=== PATIENT | female | born 1965 | race Caucasian/White ===

== ENCOUNTER 2020-03-21 06:20 | Day surgery (SDC) | payer OTHER ==
[~2020-03-21] VITALS: Ht 170.2 cm; Wt 111.1 kg
[~2020-03-21 06:20] MED LIST: ACETAMINOPHEN325 M1 PO; ASPIRIN EC81 MG PO; CALCIUM + VITA1 EACH PO; CHLORPHENIRAMINE4 MG PO; CLIMARA1 EAC1 TD; CLOBETASOL EMOL15 GM TOP; IBUPROFEN200 MG PO; LEVOTHYROXINE112 MCG PO; LIOTHYRONINE SO5 MCG PO; LIPITOR40 MG PO; METOPROLOL SUCC25 MG PO; PEPCID20 MG PO; PROMETRIUM200 MG PO; TUMS ULTRA400 MG PO; VISION VITAMIN1 EACH PO; WELLBUTRIN XL300 MG PO; ZOLOFT50 MG PO
--- NOTE | 2020-03-21 08:19 | NUR ---
03/21/20 0819 Elissa Yip 0816-PATIENT ARRIVED TO PACU ON 2L NC AWAKE DROWSY LAYING LEFT LATERAL. ABDOMEN SOFT. IVF INFUSING. RR EVEN. ENCOURAGED TO PASS GAS. PATIENT FOLLOWS COMMANDS REPOSITIONS SELF IN BED. DOZES BACK TO SLEEP.
--- NOTE | 2020-03-21 08:20 | NUR ---
PT IS ALERT, ORIENTED AND APPEARS TO BE DIDIGENT IN HER HEALTH CARE. PT HAS A HISTOSRY OF COLON CANCER IN HER FAMILY AND IS HAVING ADDITIONAL DISCOMFORT SO AN EGD WAS ALSO ORDERED. PT'S [facility] ASKED AND ANSWERED. OR STAFF INTO TAKE PT. GAVE BLESSING
--- NOTE | 2020-03-21 10:45 | OR ---
[facility] [address], [place] [address] Signed DATE OF OPERATION: 03/21/2020 SURGEON: Ryan Luther MD PREOPERATIVE DIAGNOSES: 1. Possible celiac sprue. 2. Chronic diarrhea. 3. Daughter with rectal cancer, age 25. 4. Father with colonic polyps. POSTOPERATIVE DIAGNOSES: 1. Mild gastroduodenitis. 2. Tiny hiatal hernia. 3. A 10 mm polyp at 20 cm (snare). 4. A 7 mm polyp at 15 cm (distal sigmoid colon). 5. A 4 mm polyp at 10 cm (rectum). PROCEDURES: 1. EGD with CLOtest and biopsies of the duodenum x3, pyloric bulb, antrum and GE junction. 2. Colonoscopy, snare polypectomy and hot biopsy. ESTIMATED BLOOD LOSS: None. INDICATIONS: Evans is a 55-year-old female, asked to see me for upper and lower endoscopy. I initially met Evans when her daughter was diagnosed with rectal cancer at age 25. She had a negative colonoscopy in 2008 and then again in 2014. She told me she has had diarrhea probably for 15 years. She has had abdominal pain. She was tested for celiac sprue and some of the tests came back positive, but others did not. She has switched over a gluten free diet and she thinks overall she is better. In the meantime, she was asked to see me for both upper and lower endoscopy. I explained to Evans if she is very strict with a gluten free diet that the duodenum will recover and the biopsies will actually come back fine. In the office, I gave her pamphlets on both upper and lower endoscopy. We reviewed those together along with the risks including, but not limited to gas bloating, crampy abdominal pain, bleeding, perforation requiring surgery, and missed diagnosis. She has done well with Versed and fentanyl in the past. She has expressed understanding and wished to proceed. Electronically Signed By: RYAN LUTHER MD 03/21/20 1045 PATIENT NAME: EVANS KATZ OPERATIVE REPORT DATE OF : 67 REPORT #: [id number] PHYSICIAN: RYAN LUTHER MD PCP: NIYAH BISWAS REPORT IS CONFIDENTIAL AND NOT TO BE RELEASED WITHOUT AUTHORIZATION [facility] [address] [place] [id number] Signed DESCRIPTION OF PROCEDURE: Evans was taken into our endoscopy suite and placed in the supine semi-recumbent position. The posterior oropharynx was anesthetized with lidocaine spray. A bite block was utilized for the case. She was given a total of 7 mg of Versed and 150 mcg of fentanyl to cover the case. The adult gastroscope was introduced and advanced out into the third portion of the duodenum without difficulty. The duodenum appeared quite healthy. Three biopsies were taken as far out in the duodenum as we could reach. The pyloric bulb in the stomach showed very mild erythematous changes throughout. We went ahead and took biopsies of the pyloric bulb and the antrum for pathologic review. In addition, biopsy came out of the antrum for CLOtest. Upon retroflexion of scope, she may have just a very tiny hiatal hernia. The scope had been withdrawn up through the area of GE junction, which was compliant without stricture. There were no gastric or esophageal varices. She had very minimal disruption to her Z-line. There was no Wilkerson's mucosa. We went ahead and took a biopsy along the edge of the Z-line for pathologic review. The distal middle and upper esophagus were unremarkable. After this, the gas had been suctioned out and the gastroscope removed. Evans tolerated procedure quite well. Evans was rotated into the left lateral decubitus position. She was maintained on IV sedation with Versed and fentanyl. A digital rectal exam was performed and this was unremarkable. The adult colonoscope was introduced and advanced around into the cecum under direct visualization of camera. It took extra sedation and abdominal compression in order to advance the scope. Her prep was quite excellent. We could easily see the appendiceal orifice and the ileocecal valve. We had taken pictures throughout for photodocumentation. The scope was slowly withdrawn. We saw no inflammatory changes throughout the entire colon. We removed the polyp at 20 cm with help of the snare. The other two were taken out with the help of hot biopsy forceps. Upon retroflexion of scope, there was no additional pathology noted above the anal canal. After this, the gas was suctioned out and colonoscope removed. Evans tolerated her lower endoscopy quite well. RECOMMENDATIONS: I will see Evans back in my office in 7 to 14 days to review her results. Ryan Luther MD ALB/MODL /[id number] Electronically Signed By: RYAN LUTHER MD 03/21/20 1045 PATIENT NAME: EVANS KATZ OPERATIVE REPORT DATE OF : 67 REPORT #: [id number] PHYSICIAN: RYAN LUTHER MD PCP: NIYAH BISWAS PAC REPORT IS CONFIDENTIAL AND NOT TO BE RELEASED WITHOUT AUTHORIZATION [facility] [address] [place] [address] Signed cc: LEONIDES Garcia MD Jeffrey M Lehr, MD Ryan Luther MD Copies: AARTI HERNANDEZ MD,RYAN JACKSON MD, MD ~ Electronically Signed By: RYAN LUTHER MD 03/21/20 1045 PATIENT NAME: EVANS KATZ OPERATIVE REPORT DATE OF : 67 REPORT #: [id number] PHYSICIAN: RYAN LUTHER MD PCP: NIYAH BISWAS PAC REPORT IS CONFIDENTIAL AND NOT TO BE RELEASED WITHOUT AUTHORIZATION
--- NOTE | 2020-03-22 12:10 | PATH ---
[facility] [facility] [address], [place] [address] Signed SPECIMEN(S): A DUODENUM SPECIMEN(S): B PYLORUS, BULB SPECIMEN(S): C ANTRUM SPECIMEN(S): D GE JUNCTION SPECIMEN(S): E COLON POLYP AT 20 CM SPECIMEN(S): F COLON POLYP AT 15 CM SPECIMEN(S): G COLON POLYP AT 10 CM SPECIMEN SOURCE: A. DUODENUM B. PYLORUS, BULB C. ANTRUM D. GE JUNCTION E. COLON POLYP AT 20 CM F. COLON POLYP AT 15 CM G. COLON POLYP AT 10 CM CLINICAL HISTORY: Pre: History of diarrhea, abdominal pain, family history colon polyps, cancer. Post: Mild gastric , mild hiatal hernia, colon and rectal polyps. Rule out history of celiac sprue. MICROSCOPIC DESCRIPTION: Histologic sections of all submitted blocks are examined by light microscopy. These findings, together with the gross examination, support the pathologic diagnosis. FINAL PATHOLOGIC DIAGNOSIS: A. Duodenum, biopsy: - Duodenal mucosa with normal villous architecture and mild increased intraepithelial lymphocytes. - Negative for dysplasia or malignancy. B. "Pyloric bulb", biopsy: - Duodenal mucosa with moderate mucosa lesion. - Negative for dysplasia or malignancy. - See Comment. C. Stomach, antrum, biopsy: - Antral mucosa with reactive gastropathy and focal mild active inflammation. - Negative for Helicobacter organisms on HE stain. - Negative for dysplasia or malignancy. D. Gastroesophageal junction, biopsy: - Squamous mucosa with mild chronic inflammation and reactive epithelial PATIENT NAME: EVANS KATZ PATHOLOGY DATE OF : 67 REPORT #: [id number] PHYSICIAN: SANDRITA BUCK PCP: NIYAH BISWAS PAC REPORT IS CONFIDENTIAL AND NOT TO BE RELEASED WITHOUT AUTHORIZATION [facility] [address], [place] [address] Signed changes, consistent with reflux esophagitis. - Negative for intestinal metaplasia, dysplasia, or malignancy. E. Colon, polyp a 20 cm, polypectomy: - Fragment of tubular adenoma. - Negative for high-grade dysplasia or malignancy. F. Colon, polyp at 15 cm, polypectomy: - Tubular adenoma. - Negative for high-grade dysplasia or malignancy. G. Colon, polyp at 10 cm, polypectomy: - Hyperplastic polyp. - Negative for dysplasia or malignancy. COMMENT: Regarding specimen B: Sections demonstrate duodenal mucosa with moderate villous blunting and increased intraepithelial lymphocytes (35 per 100 enterocytes). No active inflammation, foveolar metaplasia, or Helicobacter organisms are seen. 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 Correlation with serological studies is recommended. NAL:cml:C2NR GROSS DESCRIPTION: Seven specimens are received in seven containers, labeled "JK." A. The specimen, labeled "JK, 1," and designated on the requisition "duodenum," is received in formalin and consists of three dong soft tissue fragments that measure 0.4 cm in greatest dimension. The specimen is entirely submitted in cassette (A1). B. The specimen, labeled "JK, 2," and designated on the requisition "pylorus bulb," is received in formalin and consists of one dong soft tissue fragment that measures 0.5 cm in greatest dimension. The specimen is entirely submitted in cassette (B1). C. The specimen, labeled "JK, 3," and designated on the requisition "antrum," is received in formalin and consists of one dong soft tissue fragment that measures 0.3 cm in greatest dimension. The specimen is entirely submitted in cassette (C1). D. The specimen, labeled "JK, 4," and designated on the requisition "GE junction," is received in formalin and consists of one dong soft tissue fragment that measures 0.4 cm in greatest dimension. The specimen is entirely submitted in cassette (D1). PATIENT NAME: EVANS KATZ PATHOLOGY DATE OF : 67 REPORT #: [id number] PHYSICIAN: SANDRITA BUCK PCP: NIYAH BISWAS PAC REPORT IS CONFIDENTIAL AND NOT TO BE RELEASED WITHOUT AUTHORIZATION [facility] [address], [place] [address] Signed E. The specimen, labeled "JK, 5," and designated on the requisition "colon polyp at 20 cm," is received in formalin and consists of four dong soft tissue polypoid fragments that measure 0.6 cm in greatest dimension. The specimen is entirely submitted in cassette (E1). F. The specimen, labeled "JK, 6," and designated on the requisition "colon polyp at 15 cm," is received in formalin and consists of one dong polypoid soft tissue fragment that measures 0.4 cm in greatest dimension. The specimen is entirely submitted in cassette (F1). G. The specimen, labeled "JK, 7," and designated on the requisition "colon polyp at 10 cm," is received in formalin and consists of one dong-brown polypoid soft tissue fragment that measures 0.3 cm in greatest dimension. The specimen is entirely submitted in cassette (G1). AT (under the direct supervision of a pathologist) PERFORMING LABORATORY: The technical component was performed by [facility] [address] (Community Health Advisor: Aida Casillas MD; CLIA# [id number]). Professional interpretation was [place] [address] (CLIA# [id number]). Diagnostician: Zoë Guzmán MD Pathologist Electronically Signed 03/22/2020 Copies: ~ PATIENT NAME: EVANS KATZ PATHOLOGY DATE OF : 67 REPORT #: [id number] PHYSICIAN: SANDRITA PATHOLOGY PCP: NIYAH BISWAS PAC REPORT IS CONFIDENTIAL AND NOT TO BE RELEASED WITHOUT AUTHORIZATION
== END 2020-03-21 09:20 | disposition home or self-care (01) ==
LOC: DS 06:20 → OPS 06:20 → DS 06:45 → OPS 09:20
PROVIDERS: Colon & Rectal Surgery
PROC: 0DB48ZX Excision of Esophagogastric Junction, Via Natural or Artificial Opening Endoscopic, Diagnostic (ICD-10-PCS; 2020-03-21)
PROC: 0DBE8ZZ Excision of Large Intestine, Via Natural or Artificial Opening Endoscopic (ICD-10-PCS; 2020-03-21)
PROC: 0DB98ZX Excision of Duodenum, Via Natural or Artificial Opening Endoscopic, Diagnostic (ICD-10-PCS; principal; 2020-03-21 06:45)
PROC: 0DB78ZX Excision of Stomach, Pylorus, Via Natural or Artificial Opening Endoscopic, Diagnostic (ICD-10-PCS; 2020-03-21 06:45)
DX: D12.6 Benign neoplasm of colon, unspecified (principal); K29.70 Gastritis, unspecified, without bleeding; K20.9 Esophagitis, unspecified; K44.9 Diaphragmatic hernia without obstruction or gangrene; K21.9 Gastro-esophageal reflux disease without esophagitis; E03.9 Hypothyroidism, unspecified; F32.9 Major depressive disorder, single episode, unspecified; Z79.899 Other long term (current) drug therapy; Z79.82 Long term (current) use of aspirin; Z88.2 Allergy status to sulfonamides; Z83.71 Family history of colonic polyps
CPT/HCPCS: 86677; 99153; G0500; J2250; J3010; J3490; J7121

== ENCOUNTER 2024-10-31 07:39 | Day surgery (SDC) | payer OTHER ==
[~2024-10-31] VITALS: Ht 170.2 cm; Wt 113.6 kg
[~2024-10-31 07:39] MED LIST changes: +CEFAZOLIN SODIUM 2 GM/20 ML SYR IV SCH; +IBLOOD GLUCOSE TEST STRIP 1 EA TEST VI PRN; +LACTATED RINGER'S 1,000 ML IV SCH; +LIDOCAINE HCL 1% 5 ML SDV INJ ONE; +MIDAZOLAM HCL 5 MG/5 ML VIAL IV PRN; +fentaNYL citrate 100 MCG/2 ML VIAL IV PRN
[2024-10-31 07:56] VITALS: BP 134/57
[2024-10-31] MEDS ORDERED: fentaNYL citrate 100 MCG/2 ML VIAL ONE (08:44)
[2024-10-31] MEDS ORDERED: MIDAZOLAM HCL 5 MG/5 ML VIAL ONE (08:44)
--- NOTE | 2024-10-31 09:34 | NUR ---
10/31/24 0934 Sheets,Tatiana 0900 PT ARRIVED TO PACU ON 2L VIA NC, PT WAKES EASILY AND DENIES CONCERNS. PT ENCOURAGED TO PASS GAS NEEDED.
[2024-10-31 10:22] VITALS: BP 118/72
--- NOTE | 2024-11-01 08:58 | OR ---
[facility] [address] [place], [place] [address] Signed DATE OF OPERATION: 10/31/2024 SURGEON: Ryan Luther MD PREOPERATIVE DIAGNOSES: 1. Daughter with rectal cancer, age 25. 2. Personal history of colonic polyps in 2020 at age 55. 3. Celiac disease. 4. Left lower quadrant abdominal pain associated with fecal urgency and incontinence. 5. Chronic diarrhea greater than 15 years. 6. Father with colonic polyps. 7. Laparoscopic cholecystectomy in 1999. POSTOPERATIVE DIAGNOSES: Unremarkable colonoscopy. PROCEDURE: Colonoscopy without biopsy. ESTIMATED BLOOD LOSS: None. INDICATIONS: Tabitha is a 59-year-old obese female, asked to see me for her 4th colonoscopy. I helped her back in 2008 when her daughter was just 25 years old. Her daughter was diagnosed with rectal cancer. Dr. Florentin Chew helped to take care of her at that time at [facility]. Dr. Chew is now retired. I helped Evans once again in 2014, which was negative as well. She came back in 2019 at the age of 55 and had a tubular adenomatous polyp removed, it was less than 10 mm in diameter. She also had one hyperplastic polyp removed. She did well with 7 mg of Versed and 150 mcg of fentanyl. She has also been diagnosed with celiac disease based on blood work and biopsies from the duodenum. She is doing well on her gluten free diet; however, she is having some trouble with left lower quadrant abdominal pain associated with fecal urgency and incontinence. She went to see the nurse practitioner associated with our Gastroenterology group at our [facility] [place], apparently that was not very fruitful. She told me she has had diarrhea for over 15 years. We know she had her gallbladder removed in 1999. She sometimes uses dicyclomine. I do not believe she is on any Questran. She also had her mitral valve repaired a few years ago. She also has a patent foramen ovale that was repaired. Consequently, we gave her Ancef for her procedures. She continues to see her goring cutter once a year. She said everything is Electronically Signed By: RYAN LUTHER MD 11/01/24 0858 PATIENT NAME: EVANS KATZ OPERATIVE REPORT DATE OF : 67 REPORT #: [id number] PHYSICIAN: RYAN LUTHER MD PCP: JURGEN ATKINS MD REPORT IS CONFIDENTIAL AND NOT TO BE RELEASED WITHOUT AUTHORIZATION [facility] [address], [place] [address] Signed going great. She is now using CPAP because of her sleep apnea. She said the idiopathic thrombocytopenic purpura has not bothered her since her . In addition, she told me her father had colonic polyps as well. In the office, I gave her a pamphlet on colonoscopy. She understands the test well. There is risk including, but not limited to gas bloating, crampy abdominal pain, bleeding, perforation requiring surgery, and missed diagnosis. We also reviewed the written instructions for the bowel prep line by line. She is very familiar with our bowel prep at this point in time. We also talked about her sedation. We thought she would probably be okay with Versed and fentanyl once again. We are starting to lean towards monitored anesthesia care. After her procedure today, she clearly needs monitored anesthesia care in the future. She understands an adult person has to take her home afterwards that would be her . She has expressed understanding and would like to proceed. PROCEDURE IN DETAIL: Shaneka was taken into our endoscopy suite, placed in the left lateral decubitus position. We gave her just 3 mg of Versed and 100 mcg of fentanyl. We used her nasal CPAP. She has no oxygen on the nasal CPAP, consequently put an oxygen mask over her face. Nevertheless, she obviously has her mouth closed during that procedure with the nasal CPAP. She dropped her O2 sats down into the 70s. She was laid on anesthesia, but because she is technically easy to pass the scope, we did get the camera into the cecum itself with the help of one of our nurses with abdominal compression. Three of the nurses were busy with the nasal CPAP and keeping track of her O2 sats and her CO2 levels. Her digital rectal exam was unremarkable. There were no external hemorrhoids. No internal hemorrhoids. Her sphincter tone was down a little bit on Versed and fentanyl. Again, the adult colonoscope had been introduced and advanced all around into the cecum. We needed just a little bit of abdominal compression to get the scope into the cecum. As always, her prep was quite good. She had a fair amount of bile, but most of that was suctioned out. We could easily see the appendiceal orifice and ileocecal valve. The scope was then slowly withdrawn. No pathology throughout the entire colon. She does have a tortuous sigmoid colon. Once in the rectum, the scope was retroflexed and she has very tiny internal anal skin tags. After this, the gas was suctioned out. The colonoscope removed. Shaneka tolerated the procedure quite well. RECOMMENDATIONS: Shaneka can return in 5 years for repeat screening colonoscopy. She will need monitored anesthesia care in the future as described above. In addition, she might consider Questran or a similar product to see if that would help alleviate some of her diarrhea associated with the bile. Electronically Signed By: RYAN LUTHER MD 11/01/24 0858 PATIENT NAME: EVANS KATZ OPERATIVE REPORT DATE OF : 67 REPORT #: [id number] PHYSICIAN: RYAN LUTHER MD PCP: JURGEN ATKINS MD REPORT IS CONFIDENTIAL AND NOT TO BE RELEASED WITHOUT AUTHORIZATION [address] [address] Signed MD ABRAHAM Vieyra/JANELLEL /[id number] cc: Patient Chart MD Promise Vieyra PA-C Copies: RYAN LUTHER MD, ERIKA PAC Electronically Signed By: RYAN LUTHER MD 11/01/24 0858 PATIENT NAME: EVANS KATZ OPERATIVE REPORT DATE OF : 67 REPORT #: [id number] PHYSICIAN: RYAN LUTHER MD PCP: JURGEN ATKINS MD REPORT IS CONFIDENTIAL AND NOT TO BE RELEASED WITHOUT AUTHORIZATION
== END 2024-10-31 10:10 | disposition home or self-care (01) ==
LOC: DS 07:39
PROVIDERS: ATTEND Colon & Rectal Surgery
PROC: 0DJD8ZZ Inspection of Lower Intestinal Tract, Via Natural or Artificial Opening Endoscopic (ICD-10-PCS; principal; 2024-10-31 08:50)
DX: Z12.11 Encounter for screening for malignant neoplasm of colon (principal); K63.89 Other specified diseases of intestine; K90.0 Celiac disease; I25.10 Atherosclerotic heart disease of native coronary artery without angina pectoris; D69.3 Immune thrombocytopenic purpura; I11.9 Hypertensive heart disease without heart failure; E78.5 Hyperlipidemia, unspecified; G47.33 Obstructive sleep apnea (adult) (pediatric); K21.9 Gastro-esophageal reflux disease without esophagitis; E03.9 Hypothyroidism, unspecified; G25.81 Restless legs syndrome; E66.9 Obesity, unspecified; Z68.41 Body mass index [BMI] 40.0-44.9, adult; Z86.0101 Personal history of adenomatous and serrated colon polyps; Z79.890 Hormone replacement therapy; Z79.899 Other long term (current) drug therapy; Z88.2 Allergy status to sulfonamides; Z99.89 Dependence on other enabling machines and devices; Z90.49 Acquired absence of other specified parts of digestive tract; Z80.0 Family history of malignant neoplasm of digestive organs
CPT/HCPCS: J0690; J2250; J3010; J7121